=== PATIENT | female | born 1970 | race Asian ===

== ENCOUNTER 2018-03-25 21:20 | Emergency (ER) | payer SELFPAY ==
[~2018-03-25] VITALS: Ht 162.6 cm; Wt 85.7 kg
[2018-03-25 21:37] LABS: HEMOGLOBIN 13.3 G/DL (11.9-15.5); MCH 29.4 PG (29.0-34.0); MCHC 33.3 G/DL (30.0-36.0); MCV 88.5 FL (83-99); PLATELET COUNT 283 K/uL (156-360); RBC DIS.WIDTH-CV 12.6 % (11.8-14.6); RBC DIS.WIDTH-SD 40.6 % (39-53); RED BLOOD COUNT 4.52 M/uL (3.80-5.20); WHITE BLOOD COUNT 8.9 K/uL (4.1-10.2)
[2018-03-25 21:49] LABS: CHLORIDE 105 mEq/L (99-109); POTASSIUM 4.3 mEq/L (3.7-5.4); SODIUM 141 mEq/L (136-147)
[2018-03-25 21:50] LABS: GLUCOSE 103 mg/dL (70-99)
[2018-03-25 21:54] LABS: CREATININE 0.9 mg/dL (0.6-1.3); GFR ESTIMATE (CALCULATED) > 59 mL/min/
[2018-03-25 21:55] LABS: UREA NITROGEN (BUN) 13 mg/dL (9-23)
[2018-03-25 22:02] LABS: TROP-I INTERPRETATION NEGATIVE; TROPONIN-I < 0.01 ng/mL (0.0-0.30)
[2018-03-25 23:06] LABS: D-DIMER ELISA < 150.00 ng/mLDDU (<230)
[2018-03-26 01:08] LABS: TROP-I INTERPRETATION NEGATIVE; TROPONIN-I < 0.01 ng/mL (0.0-0.30)
[2018-03-26 01:59] VITALS: BP 128/70
== END 2018-03-26 02:00 | disposition home or self-care (01) ==
LOC: EME 21:20
PROVIDERS: Emergency Medicine
DX: R07.89 Other chest pain (principal)
CPT/HCPCS: 71046; 80048; 84484; 85027; 85379; 93005; 99281; 99285